=== PATIENT | female | born 2000 | race Caucasian/White ===

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

== ENCOUNTER 2019-05-17 13:14 | Emergency (ER) | payer OTHER, BC | END 2019-05-17 15:07 | disposition home or self-care (01) | LOC: FTE 13:14 | DX: K52.9 Noninfective gastroenteritis and colitis, unspecified (principal) | CPT/HCPCS: 99283; Z7502 ==